=== PATIENT | male | born 1950 | race Caucasian/White ===

== ENCOUNTER 2019-06-04 10:59 | Observation (INO) ==
[~2019-06-04 10:59] MED LIST: ACETAMINOPHEN 500 MG TABLET PO ONE; CELECOXIB 200 MG CAPSULE PO ONE; GABAPENTIN 300 MG CAPSULE PO ONE; Gabapentin 600 MG TABLET PO ONE; LIDOCAINE W/ SODIUM BICARB 0.5 ML SYR ONE; LIDOCAINE W/ SODIUM BICARB 0.5 ML SYR SUBD PRN; Lactated Ringers 1,000 ML PRIMARY IV ONE; Nasal Sanitizer POPSWAB ampule 3 AMP (Nozin) PREOP DOSE ENOS SCH; PANTOPRAZOLE 20 MG TABLET.DR PO ONE; ceFAZolin Inj 2gm (Premix) 2 GM/50 ML BAG IV ONE
[2019-06-04] MEDS ORDERED: MIDAZOLAM HCL 2 MG/2 ML VIAL ONE (11:14)
[2019-06-04] MEDS ORDERED: fentaNYL Inj 100 MCG/2 ML VIAL ONE ×3 (11:14→15:43)
[2019-06-04] MEDS ORDERED: LIDOCAINE MPF 2% - 5 ML (20 MG/1 ML) ONE (11:15)
[2019-06-04] MEDS ORDERED: PROPOFOL 10 MG/1 ML (200 MG/20 ML) VIAL IV ONE (11:16)
[2019-06-04] MEDS: Lactated Ringers 1,000 ML PRIMARY IV SCH ×2 (11:44→21:10)
[2019-06-04] MEDS ORDERED: BUPivacaine Inj 0.25% PF - 10ml vial ONE (12:23)
[2019-06-04] MEDS ORDERED: EPINEPHrine Inj (1:1,000) 30mg/30ml vial ONE ×3 (12:23→15:49)
[2019-06-04] MEDS ORDERED: BUPIVACAINE 0.5% W/ EPI - 10 ML VIAL ONE (12:52)
[2019-06-04] MEDS ORDERED: DEXAMETHASONE PF 10 MG/1 ML VIAL ONE ×2 (12:52→15:03)
[2019-06-04] MEDS ORDERED: TRANEXAMIC ACID 1,000 MG / 10 ML VIAL ONE (14:03)
[2019-06-04] MEDS ORDERED: ONDANSETRON 4 MG/2 ML VIAL ONE (15:04)
[2019-06-04] MEDS ORDERED: BETAMET ACET/BETAMET NA PH 6 MG/1 ML - 5 ML ONE (16:35)
[2019-06-04] MEDS ORDERED: HYDROmorphone 2 MG/1 ML ONE ×2 (17:10→18:17)
[2019-06-04] MEDS ORDERED: ONDANSETRON 4 MG/2 ML VIAL IVP PRN (17:12)
[2019-06-04] MEDS ORDERED: HYDROcodone-APAP 7.5 MG-325 MG TABLET PO PRN (17:12)
[2019-06-04] MEDS ORDERED: Prochlorperazine Edisylate Inj 10mg/2ml vial IVP ONE ×2 (17:40→18:09)
[2019-06-04] MEDS ORDERED: ceFAZolin Inj 2gm (Premix) 2 GM/50 ML BAG IV ONE ×2 (17:43→17:44)
[2019-06-04] MEDS ORDERED: HYDROmorphone 2 MG/1 ML IVP PRN (17:45)
[2019-06-04] MEDS ORDERED: Prochlorperazine Edisylate Inj 10mg/2ml vial ONE (18:18)
[2019-06-04] MEDS ORDERED: Lactated Ringers 1,000 ML PRIMARY IV SCH (18:45)
[2019-06-04] MEDS: KETOROLAC 15 MG/1 ML VIAL IVP PRN (19:39)
[2019-06-05] MEDS: KETOROLAC 15 MG/1 ML VIAL IVP PRN (02:01)
[2019-06-05 07:05] VITALS: RESP 18; TEMP 98; O2SAT 94
[2019-06-05 07:13] VITALS: BP 153/81
[2019-06-05] MEDS ORDERED: Influenza 19-20 Vaccine (6mo+) 60 MCG/0.5 ML SYRINGE IM ONE (09:00)
== END 2019-06-05 11:47 | disposition home or self-care (01) ==
LOC: MED/SURG 10:59 → OR 10:59
PROVIDERS: ADMIT Orthopaedic Surgery; ATTEND Orthopaedic Surgery